=== PATIENT | male | born 1965 ===

== ENCOUNTER 2018-04-18 12:53 | Emergency (ER) | payer OTHER ==
[~2018-04-18] VITALS: Ht 177.8 cm; Wt 90.7 kg
[2018-04-18] MEDS ORDERED: ZYRTEC10 M3 (13:11)
[2018-04-18] MEDS ORDERED: CRESTOR5 MG (13:11)
[2018-04-18] MEDS ORDERED: ASPIR 8181 MG (13:11)
== END 2018-04-18 16:13 | disposition home or self-care (01) ==
LOC: ER 12:53
DX: B34.9 Viral infection, unspecified (principal)